=== PATIENT | female | born 1965 | race American Indian/Alaskan Native ===

== ENCOUNTER 2018-05-20 15:11 | Inpatient (IN) | payer MEDICAID ==
[2018-05-20] MEDS ORDERED: hydrALAZINE 20 MG/ML SDV IVPUSH ONE (17:49)
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
[2018-05-20] MEDS ORDERED: Ondansetron 4 MG Tab.DIS PO PRN (18:05)
[2018-05-20] MEDS ORDERED: Albuterol/Ipratropium 3.0-0.5 MG/3 ML Neb Soln NEB PRN (18:05)
[2018-05-20] MEDS ORDERED: Bisacodyl 5 MG Tab PO PRN (18:05)
[2018-05-20] MEDS ORDERED: Albuterol 0.083% 2.5 MG/3 ML Neb Soln NEB PRN (18:05)
[2018-05-20] MEDS ORDERED: Ondansetron 4 MG/2 ML SDV IV PRN (18:05)
[2018-05-20] MEDS ORDERED: Docusate Sodium 100 MG Cap PO PRN (18:05)
[2018-05-20] MEDS ORDERED: Polyethylene Glycol 3350 Powder 17 GM Packet PO PRN (18:05)
[2018-05-20] MEDS ORDERED: Magnesium Hydroxide 400 MG/5 ML Susp 30 ML Cup PO PRN (18:05)
[2018-05-20] MEDS ORDERED: Sodium Chloride 0.9% 10 ML Syringe FLUSH PRN ×2 (18:05→18:30)
[2018-05-20] MEDS: Pantoprazole 40 MG Vial IVPUSH SCH (18:10)
[2018-05-20] MEDS ORDERED: Ketorolac 30 MG/ML SDV IV PRN (18:21)
[2018-05-20] MEDS ORDERED: Metoprolol Tartrate 25 MG Tab PO PRN (18:30)
[2018-05-20] MEDS ORDERED: LORazepam 2 MG/ML SDV IV SCH (18:30)
[2018-05-20] MEDS ORDERED: cloNIDine 0.1 MG Tab PO PRN (18:30)
[2018-05-20] MEDS ORDERED: Multivitamins,Therapeutic Tab PO ONE (18:30)
[2018-05-20] MEDS ORDERED: LORazepam 1 MG Tab PO SCH (18:30)
[2018-05-20] MEDS ORDERED: Haloperidol Lactate 5 MG/ML SDV IM PRN (18:30)
[2018-05-20] MEDS: Nicotine 21 MG/24 Hr Patch TRDERM SCH (18:34)
[2018-05-20] MEDS ORDERED: hydrALAZINE 20 MG/ML SDV IVPUSH PRN (18:41)
[2018-05-20] MEDS ORDERED: LORazepam 2 MG/ML SDV IVPUSH PRN (18:44)
[2018-05-20] MEDS: Folic Acid 1 MG Tab PO SCH (19:27)
[2018-05-20] MEDS: Thiamine 100 MG Tab PO SCH (19:27)
[2018-05-20] MEDS: amLODIPine 10 MG Tab PO SCH (20:04)
[2018-05-20] MEDS: Prazosin 1 MG Cap PO SCH (20:05)
[2018-05-20] MEDS: Topiramate 25 MG Tab PO SCH (20:05)
[2018-05-20] MEDS: Furosemide 20 MG Tab PO SCH (20:10)
[2018-05-20] MEDS ORDERED: QUEtiapine 25 MG Tab PO SCH (21:00)
[2018-05-20] MEDS: Remove Patch*NICOTINE TRDERM SCH (22:30)
[2018-05-21] MEDS: Levothyroxine 125 MCG Tab PO SCH (05:39)
[2018-05-21] MEDS ORDERED: Levothyroxine 75 MCG Tab PO SCH (06:00)
[2018-05-21] MEDS: Calcium Carbonate 600 MG Tab PO SCH ×2 (06:21→16:48)
[2018-05-21] MEDS ORDERED: Pneumococcal Polyvalent-23 Vaccine 0.5 ML SDV IM ONE (07:15)
[2018-05-21] MEDS: Furosemide 20 MG Tab PO SCH (08:36)
[2018-05-21] MEDS: Loratadine 10 MG Tab PO SCH (08:37)
[2018-05-21] MEDS: Thiamine 100 MG Tab PO SCH (08:37)
[2018-05-21] MEDS: Topiramate 25 MG Tab PO SCH ×2 (08:37→20:14)
[2018-05-21] MEDS: amLODIPine 10 MG Tab PO SCH (08:38)
[2018-05-21] MEDS: Nicotine 21 MG/24 Hr Patch TRDERM SCH (08:42)
[2018-05-21] MEDS: Pantoprazole 40 MG Vial IVPUSH SCH (08:45)
[2018-05-21] MEDS: Folic Acid 1 MG Tab PO SCH (08:47)
[2018-05-21] MEDS: Ibuprofen 400 MG Tab PO PRN ×2 (09:44→16:48)
[2018-05-21] MEDS: Pantoprazole 40 MG Tab.CR PO SCH (09:44)
[2018-05-21] MEDS: hydrOXYzine HCl 25 MG Tab PO PRN ×3 (10:30→21:16)
[2018-05-21] MEDS: Remove Patch*NICOTINE TRDERM SCH (10:32)
--- NOTE | 2018-05-21 11:02 | CR ---
Left knee: AP and lateral views of the left knee were obtained. No joint effusion is seen. Medial and lateral joint compartments are maintained in height. No fracture or other abnormality is seen. Impression: 1. No abnormality is seen on two-view left knee exam. Diagnostic code #1
--- NOTE | 2018-05-21 16:41 | PCM.PN ---
- General Info Date of Service: 05/21/18 Admission Dx/Problem (Free Text): Admission Diagnosis/Problem Admission Diagnosis/Problem Alcohol abuse Subjective Update: In to see Анна. She is lying comfortably in bed in the dark resting. Overall she states she is feeling much better today. She does complain of some anxiety and some mild bouts of nausea, but other than that she denies any other symptoms. She did talk with Dr. Belle today and states it "went very well". She is on board with his medication recommendations, increasing Seroquel from 25mg-- > 75mg PO bedtime and starting Effexor 150 Q daily. I also discussed that she needs to continue taking her at-home medications once she is discharged and explained that her uncontrolled hypothyroid will cause her to have more depression. She states she agrees and is willing to start taking her medications as prescribed from now on. Still awaiting Substance Abuse consult which will be with Tripp Roger later today. No other concerns from nursing. Will D/ C pending recommendations from Dr. Belle and Tripp Roger. Functional Status: Reports: Pain Controlled, Tolerating Diet, Ambulating, Urinating - Review of Systems General: Reports: No Symptoms. Denies: Fever, Chills HEENT: Reports: No Symptoms Pulmonary: Reports: Shortness of Breath (with anxiety). Denies: Cough Cardiovascular: Reports: No Symptoms. Denies: Chest Pain, Palpitations, Edema Gastrointestinal: Reports: Nausea (intermittent). Denies: Abdominal Pain, Diarrhea, Vomiting Genitourinary: Reports: No Symptoms Musculoskeletal: Reports: No Symptoms Skin: Reports: No Symptoms Neurological: Reports: No Symptoms. Denies: Numbness, Tingling, Weakness Psychiatric: Reports: Depression, Anxiety - Patient Data Vitals - Most Recent: Last Vital Signs Temp 98.0 F 05/21/18 11:37 Pulse 93 05/21/18 11:37 Resp 16 05/21/18 11:37 BP 131/56 L 05/21/18 11:37 Pulse Ox 100 05/21/18 11:37 Weight - Most Recent: 189 lb 3.2 oz I&O - Last 24 Hours: Intake & Output 05/21/18 05/21/18 05/21/18 06:59 14:59 22:59 Intake Total 1200 1500 240 Balance 1200 1500 240 Lab Results Last 24 Hours: Laboratory Results - last 24 hr 05/20/18 05/20/18 05/20/18 Range/Units 18:00 18:00 18:00 WBC 9.33 (3.98-10.04) K/mm3 RBC 4.33 (3.98-5.22) M/mm3 Hgb 11.3 (11.2-15.7) gm/L Hct 34.1 (34.1-44.9) % MCV 78.8 L (79.4-94.8) fl MCH 26.1 (25.6-32.2) pg MCHC 33.1 (32.2-35.5) g/dl RDW Std Deviation 63.8 H (36.4-46.3) fL Plt Count 364 (182-369) K/mm3 MPV 9.7 (9.4-12.3) fl Neut % (Auto) (34.0-71.1) % Lymph % (Auto) (19.3-51.7) % [place] % (Auto) (4.7-12.5) % Eos % (Auto) (0.7-5.8) Baso % (Auto) (0.1-1.2) % Neut # (Auto) (1.56-6.13) K/mm3 Lymph # (Auto) (1.18-3.74) K/mm3 [place] # (Auto) (0.24-0.36) K/mm3 Eos # (Auto) (0.04-0.36) K/mm3 Baso # (Auto) (0.01-0.08) K/mm3 Neutrophils % (Manual) 44 (40-60) % Band Neutrophils % 0 (0-10) % Lymphocytes % (Manual) 36 (20-40) % Atypical Lymphs % 0 % Monocytes % (Manual) 9 (2-10) % Eosinophils % (Manual) 9 H (0.7-5.8) % Basophils % (Manual) 2 H (0.1-1.2) Platelet Estimate Adequate Plt Morphology Comment Normal Poikilocytosis 2+ moderate Anisocytosis 2+ moderate Microcytosis 1+ slight Macrocytosis 1+ slight Target Cells 1+ slight Tear Drop Cells 1+ slight Ovalocytes 1+ slight RBC Morph Comment Abnormal Sodium 138 (136-145) mEq/L Potassium 4.6 (3.5-5.1) mEq/L Chloride 105 (98-107) mEq/L Carbon Dioxide 26 (21-32) mEq/L Anion Gap 11.6 (5-15) BUN 11 (7-18) mg/dL Creatinine 1.2 H (0.55-1.02) mg/dL Est Cr Clr Drug Dosing 44.36 mL/min Estimated GFR (MDRD) 48 (>60) mL/min BUN/Creatinine Ratio 9.2 L (14-18) Glucose 132 H (74-106) mg/dL Hemoglobin A1c (4.50-6.20) % Calcium 7.6 L (8.5-10.1) mg/dL Magnesium 2.0 (1.8-2.4) mg/dl Total Bilirubin 0.4 (0.2-1.0) mg/dL AST TNP ALT TNP Alkaline Phosphatase 135 H (46-116) U/L Total Protein 6.7 (6.4-8.2) g/dl Albumin 3.0 L (3.4-5.0) g/dl Globulin 3.7 gm/dL Albumin/Globulin Ratio 0.8 L (1-2) Free T4 (0.76-1.46) ng/dL TSH 3rd Generation 168.566 H (0.358-3.74) uIU/mL Urine Opiates Screen Negative (NEGATIVE) Ur Buprenorphine Scrn Negative (NEGATIVE) Ur Oxycodone Screen Negative (NEGATIVE) Urine Methadone Screen Negative (NEGATIVE) Ur Propoxyphene Screen Negative (NEGATIVE) Ur Barbiturates Screen Negative (NEGATIVE) Ur Tricyclics Screen Negative (NEGATIVE) Ur Phencyclidine Scrn Negative (NEGATIVE) Ur Amphetamine Screen Negative (NEGATIVE) U Methamphetamines Scrn Negative (NEGATIVE) U Benzodiazepines Scrn Negative (NEGATIVE) U Cocaine Metab Screen Negative (NEGATIVE) U Marijuana (THC) Screen Negative (NEGATIVE) Ethyl Alcohol 0.07 (0.00) gm% 05/20/18 05/21/18 05/21/18 Range/Units 18:00 06:45 06:45 WBC 12.91 H (3.98-10.04) K/mm3 RBC 4.05 (3.98-5.22) M/mm3 Hgb 10.2 L (11.2-15.7) gm/L Hct 31.5 L (34.1-44.9) % MCV 77.8 L (79.4-94.8) fl MCH 25.2 L (25.6-32.2) pg MCHC 32.4 (32.2-35.5) g/dl RDW Std Deviation 64.0 H (36.4-46.3) fL Plt Count 337 (182-369) K/mm3 MPV 10.3 (9.4-12.3) fl Neut % (Auto) 70.0 (34.0-71.1) % Lymph % (Auto) 20.4 (19.3-51.7) % [place]oup % (Auto) 7.3 (4.7-12.5) % Eos % (Auto) 1.2 (0.7-5.8) Baso % (Auto) 0.7 (0.1-1.2) % Neut # (Auto) 9.05 H (1.56-6.13) K/mm3 Lymph # (Auto) 2.63 (1.18-3.74) K/mm3 Troup # (Auto) 0.94 H (0.24-0.36) K/mm3 Eos # (Auto) 0.15 (0.04-0.36) K/mm3 Baso # (Auto) 0.09 H (0.01-0.08) K/mm3 Neutrophils % (Manual) (40-60) % Band Neutrophils % (0-10) % Lymphocytes % (Manual) (20-40) % Atypical Lymphs % % Monocytes % (Manual) (2-10) % Eosinophils % (Manual) (0.7-5.8) % Basophils % (Manual) (0.1-1.2) Platelet Estimate Plt Morphology Comment Poikilocytosis Anisocytosis Microcytosis Macrocytosis Target Cells Tear Drop Cells Ovalocytes RBC Morph Comment Sodium 136 (136-145) mEq/L Potassium 3.9 (3.5-5.1) mEq/L Chloride 104 (98-107) mEq/L Carbon Dioxide 23 (21-32) mEq/L Anion Gap 12.9 (5-15) BUN 13 (7-18) mg/dL Creatinine 1.2 H (0.55-1.02) mg/dL Est Cr Clr Drug Dosing 44.36 mL/min Estimated GFR (MDRD) 48 (>60) mL/min BUN/Creatinine Ratio 10.8 L (14-18) Glucose 107 H (74-106) mg/dL Hemoglobin A1c (4.50-6.20) % Calcium 7.9 L (8.5-10.1) mg/dL Magnesium 1.8 (1.8-2.4) mg/dl Total Bilirubin 0.4 (0.2-1.0) mg/dL AST 28 ALT 32 Alkaline Phosphatase 127 H (46-116) U/L Total Protein 6.3 L (6.4-8.2) g/dl Albumin 2.8 L (3.4-5.0) g/dl Globulin 3.5 gm/dL Albumin/Globulin Ratio 0.8 L (1-2) Free T4 0.07 L (0.76-1.46) ng/dL TSH 3rd Generation (0.358-3.74) uIU/mL Urine Opiates Screen (NEGATIVE) Ur Buprenorphine Scrn (NEGATIVE) Ur Oxycodone Screen (NEGATIVE) Urine Methadone Screen (NEGATIVE) Ur Propoxyphene Screen (NEGATIVE) Ur Barbiturates Screen (NEGATIVE) Ur Tricyclics Screen (NEGATIVE) Ur Phencyclidine Scrn (NEGATIVE) Ur Amphetamine Screen (NEGATIVE) U Methamphetamines Scrn (NEGATIVE) U Benzodiazepines Scrn (NEGATIVE) U Cocaine Metab Screen (NEGATIVE) U Marijuana (THC) Screen (NEGATIVE) Ethyl Alcohol (0.00) gm% 05/21/18 Range/Units 06:45 WBC (3.98-10.04) K/mm3 RBC (3.98-5.22) M/mm3 Hgb (11.2-15.7) gm/L Hct (34.1-44.9) % MCV (79.4-94.8) fl MCH (25.6-32.2) pg MCHC (32.2-35.5) g/dl RDW Std Deviation (36.4-46.3) fL Plt Count (182-369) K/mm3 MPV (9.4-12.3) fl Neut % (Auto) (34.0-71.1) % Lymph % (Auto) (19.3-51.7) % [place] % (Auto) (4.7-12.5) % Eos % (Auto) (0.7-5.8) Baso % (Auto) (0.1-1.2) % Neut # (Auto) (1.56-6.13) K/mm3 Lymph # (Auto) (1.18-3.74) K/mm3 [place] # (Auto) (0.24-0.36) K/mm3 Eos # (Auto) (0.04-0.36) K/mm3 Baso # (Auto) (0.01-0.08) K/mm3 Neutrophils % (Manual) (40-60) % Band Neutrophils % (0-10) % Lymphocytes % (Manual) (20-40) % Atypical Lymphs % % Monocytes % (Manual) (2-10) % Eosinophils % (Manual) (0.7-5.8) % Basophils % (Manual) (0.1-1.2) Platelet Estimate Plt Morphology Comment Poikilocytosis Anisocytosis Microcytosis Macrocytosis Target Cells Tear Drop Cells Ovalocytes RBC Morph Comment Sodium (136-145) mEq/L Potassium (3.5-5.1) mEq/L Chloride (98-107) mEq/L Carbon Dioxide (21-32) mEq/L Anion Gap (5-15) BUN (7-18) mg/dL Creatinine (0.55-1.02) mg/dL Est Cr Clr Drug Dosing mL/min Estimated GFR (MDRD) (>60) mL/min BUN/Creatinine Ratio (14-18) Glucose (74-106) mg/dL Hemoglobin A1c 6.10 (4.50-6.20) % Calcium (8.5-10.1) mg/dL Magnesium (1.8-2.4) mg/dl Total Bilirubin (0.2-1.0) mg/dL AST ALT Alkaline Phosphatase (46-116) U/L Total Protein (6.4-8.2) g/dl Albumin (3.4-5.0) g/dl Globulin gm/dL Albumin/Globulin Ratio (1-2) Free T4 (0.76-1.46) ng/dL TSH 3rd Generation (0.358-3.74) uIU/mL Urine Opiates Screen (NEGATIVE) Ur Buprenorphine Scrn (NEGATIVE) Ur Oxycodone Screen (NEGATIVE) Urine Methadone Screen (NEGATIVE) Ur Propoxyphene Screen (NEGATIVE) Ur Barbiturates Screen (NEGATIVE) Ur Tricyclics Screen (NEGATIVE) Ur Phencyclidine Scrn (NEGATIVE) Ur Amphetamine Screen (NEGATIVE) U Methamphetamines Scrn (NEGATIVE) U Benzodiazepines Scrn (NEGATIVE) U Cocaine Metab Screen (NEGATIVE) U Marijuana (THC) Screen (NEGATIVE) Ethyl Alcohol (0.00) gm% Med Orders - Current: Current Medications Albuterol (Proventil Neb Soln) 2.5 mg NEB Q2H PRN PRN Reason: Shortness Of Breath/wheezing Albuterol/Ipratropium (Duoneb 3.0-0.5 Mg/3 Ml) 3 ml NEB Q4H PRN PRN Reason: Shortness Of Breath/wheezing Amlodipine Besylate (Norvasc) 10 mg PO DAILY [facility] Last Admin: 05/21/18 08:38 Dose: 10 mg Bisacodyl (Dulcolax) 5 mg PO DAILY PRN PRN Reason: Constipation Calcium Carbonate/Glycine (Calcium Carbonate) 1,200 mg PO BIDMEALS [facility] Stop: 05/22/18 17:01 Last Admin: 05/21/18 06:21 Dose: 1,200 mg Clonidine HCl (Catapres) 0.1 mg PO Q4H PRN PRN Reason: Agitation Docusate Sodium (Colace) 100 mg PO BID PRN PRN Reason: Constipation Folic Acid (Folic Acid) 1 mg PO DAILY [facility] Stop: 05/22/18 09:01 Last Admin: 05/21/18 08:47 Dose: 1 mg Furosemide (Lasix) 20 mg PO DAILY [facility] Last Admin: 05/21/18 08:36 Dose: 20 mg Haloperidol Lactate (Haldol) 2 mg IM Q4H PRN PRN Reason: Agitation Hydralazine HCl (Apresoline) 20 mg IVPUSH Q6H PRN PRN Reason: Hypertension Hydroxyzine HCl (Atarax) 25 mg PO Q6H PRN PRN Reason: Anxiety Last Admin: 05/21/18 10:30 Dose: 25 mg Ibuprofen (Motrin) 400 mg PO Q6H PRN PRN Reason: Pain (mild 1-3) Last Admin: 05/21/18 09:44 Dose: 400 mg Ketorolac Tromethamine (Toradol) 30 mg IV Q6H PRN PRN Reason: Pain (moderate 4-6) Levothyroxine Sodium (Levothyroxine) 125 mcg PO ACBREAKFAST [facility] Last Admin: 05/21/18 05:39 Dose: 125 mcg Loratadine (Claritin) 10 mg PO DAILY [facility] Last Admin: 05/21/18 08:37 Dose: 10 mg Lorazepam (Ativan) 0 mg IV ASDIRECTED [facility]; Protocol Lorazepam (Ativan) 0 mg PO ASDIRECTED [facility]; Protocol Last Admin: 05/20/18 21:03 Dose: 1 mg Lorazepam (Ativan) 2 mg IVPUSH Q4H PRN PRN Reason: Seizures Magnesium Hydroxide (Milk Of Magnesia) 30 ml PO Q12H PRN PRN Reason: Constipation Metoprolol Tartrate (Lopressor) 25 mg PO Q6H PRN PRN Reason: See Label Comment Miscellaneous Information (Remove Patch) 1 ea TRDERM DAILY [facility] Last Admin: 05/21/18 10:32 Dose: Not Given Nicotine (Habitrol) 21 mg TRDERM DAILY [facility] Last Admin: 05/21/18 08:42 Dose: 21 mg Ondansetron HCl (Zofran Odt) 4 mg PO Q6H PRN PRN Reason: nausea, able to take PO Ondansetron HCl (Zofran) 4 mg IV Q4H PRN PRN Reason: Nausea/Vomiting Pantoprazole Sodium (Protonix) 40 mg PO DAILY [facility] Last Admin: 05/21/18 09:44 Dose: 40 mg Polyethylene Glycol (Miralax) 17 gm PO DAILY PRN PRN Reason: Constipation Prazosin HCl (Minpress) 1 mg PO BEDTIME [facility] Last Admin: 05/20/18 20:05 Dose: 1 mg Quetiapine Fumarate (Seroquel) 75 mg PO BEDTIME [facility] Senna/Docusate Sodium (Senna Plus) 1 tab PO BID PRN PRN Reason: Constipation Sodium Chloride (Saline Flush) 10 ml FLUSH ASDIRECTED PRN PRN Reason: Keep Vein Open Sodium Chloride (Saline Flush) 10 ml FLUSH ASDIRECTED PRN PRN Reason: Keep Vein Open Thiamine HCl (Vitamin B-1) 100 mg PO DAILY [facility] Last Admin: 05/21/18 08:37 Dose: 100 mg Topiramate (Topamax) 25 mg PO BID [facility] Last Admin: 05/21/18 08:37 Dose: 25 mg Venlafaxine HCl (Effexor Xr) 150 mg PO DAILY [facility] Discontinued Medications Hydralazine HCl (Apresoline) 20 mg IVPUSH ONETIME ONE Stop: 05/20/18 17:50 Last Admin: 05/20/18 17:58 Dose: 20 mg Levothyroxine Sodium (Levothyroxine) 75 mcg PO ACBREAKFAST [facility] Multivitamins (Thera) 1 each PO ONETIME ONE Stop: 05/20/18 18:31 Last Admin: 05/20/18 19:27 Dose: 1 each Pantoprazole Sodium (Protonix Iv) 40 mg IVPUSH DAILY [facility] Last Admin: 05/21/18 08:45 Dose: Not Given Pneumococcal Polyvalent Vaccine (Pneumovax 23) 0.5 ml IM .ONCE ONE Stop: 05/21/18 07:16 Last Admin: 05/21/18 08:39 Dose: 0.5 ml Quetiapine Fumarate (Seroquel) 50 mg PO BEDTIME [facility] Last Admin: 05/20/18 20:05 Dose: 50 mg - Exam Quality Assessment: DVT Prophylaxis. No: Supplemental Oxygen General: Alert, Oriented, Cooperative HEENT: Pupils Equal, Pupils Reactive, EOMI, Mucous Membr. Moist/Haslet Neck: Supple Lungs: Clear to Auscultation, Normal Respiratory Effort Cardiovascular: Regular Rhythm, Tachycardia GI/Abdominal Exam: Normal Bowel Sounds, Soft, Non-Tender, No Organomegaly, No Distention, No Abnormal Bruit, No Mass, Pelvis Stable (Female) Exam: Deferred Back Exam: Normal Inspection, Full Range of Motion Extremities: Normal Inspection, Normal Range of Motion, Non-Tender, No Pedal Edema, Normal Capillary Refill Peripheral Pulses: 3+: Posterior Tibial (L), Posterior Tibial (R), Dorsalis Pedis (L), Dorsalis Pedis (R) Skin: Warm, Dry, Intact Neurological: No New Focal Deficit Psy/Mental Status: Alert, Normal Affect, Anxious, Depressed - Problem List & Annotations (1) ETOH abuse SNOMED Code(s): 67984778 Code(s): F10.10 - ALCOHOL ABUSE, UNCOMPLICATED Status: Acute Priority: High Current Visit: Yes (2) Tobacco dependence SNOMED Code(s): 45364902 Code(s): F17.200 - NICOTINE DEPENDENCE, UNSPECIFIED, UNCOMPLICATED Status: Acute Priority: High Current Visit: Yes - Problem List Review Problem List Initiated/Reviewed/Updated: Yes - My Orders Last 24 Hours: My Active Orders 05/20/18 16:22 Admission Status [Patient Status] [ADT] Routine 05/20/18 18:05 Cardiac Monitoring [RC] CONTINUOUS Height and Weight [RC] 02 January Shower [RC] ASDIRECTED Oxygen Therapy [RC] PRN Pulse Oximetry [RC] CONTINUOUS Up With Assistance [RC] ASDIRECTED VTE/DVT Education [RC] Consult to Case Management/Therapeutic Riding Instructor [CONS] Routine Consult to Physician [CONS] Routine Consult to Spiritual Care [CONS] Routine Albuterol [Proventil Neb Soln] 2.5 mg NEB Q2H PRN Albuterol/Ipratropium [DuoNeb 3.0-0.5 MG/3 ML] 3 ml NEB Q4H PRN Bisacodyl [Dulcolax] 5 mg PO DAILY PRN Docusate Sodium [Colace] 100 mg PO BID PRN Docusate Sodium/Sennosides [Senna Plus] 1 tab PO BID PRN Ibuprofen [Motrin] 400 mg PO Q6H PRN Magnesium Hydroxide [Milk of Magnesia] 30 ml PO Q12H PRN Ondansetron [Zofran ODT] 4 mg PO Q6H PRN Ondansetron [Zofran] 4 mg IV Q4H PRN Polyethylene Glycol 3350 [MiraLAX] 17 gm PO DAILY PRN Sodium Chloride 0.9% [Saline Flush] 10 ml FLUSH ASDIRECTED PRN Peripheral IV Insertion Adult [OM.PC] Routine Resuscitation Status Routine 05/20/18 18:06 Intake and Output [RC] 04,16 Notify Provider Vital Signs [RC] ASDIRECTED 05/20/18 18:11 Sequential Compression Device [OM.PC] Per Unit Routine 05/20/18 18:15 Peripheral IV Care [RC] Q2HR RT Aerosol Therapy [RC] ASDIRECTED Nicotine [Habitrol] 21 mg TRDERM DAILY 05/20/18 18:18 Notify Provider Consults [RC] ASDIRECTED 05/20/18 18:21 Ketorolac [Toradol] 30 mg IV Q6H PRN 05/20/18 18:23 Seizure Precautions [OM.PC] Routine 05/20/18 18:30 Haloperidol Lactate [Haldol] 2 mg IM Q4H PRN LORazepam [Ativan] See Protocol IV ASDIRECTED LORazepam [Ativan] See Protocol PO ASDIRECTED Metoprolol Tartrate [Lopressor] 25 mg PO Q6H PRN Sodium Chloride 0.9% [Saline Flush] 10 ml FLUSH ASDIRECTED PRN cloNIDine [Catapres] 0.1 mg PO Q4H PRN Saline Lock Insert [OM.PC] Routine 05/20/18 18:31 CIWAA Assessment [RC] Q4HR Notify Provider [RC] PRN 05/20/18 18:41 hydrALAZINE [Apresoline] 20 mg IVPUSH Q6H PRN 05/20/18 18:44 LORazepam [Ativan] 2 mg IVPUSH Q4H PRN 05/20/18 18:45 Folic Acid 1 mg PO DAILY Thiamine [Vitamin B-1] 100 mg PO DAILY 05/20/18 18:48 Consult for Substance Abuse [CONS] Routine 05/20/18 19:30 Furosemide [Lasix] 20 mg PO DAILY 05/20/18 19:45 amLODIPine [Norvasc] 10 mg PO DAILY 05/20/18 21:00 Prazosin [Minpress] 1 mg PO BEDTIME Topiramate [Topamax] 25 mg PO BID 05/20/18 Dinner Regular Diet [DIET] 05/21/18 09:00 Loratadine [Claritin] 10 mg PO DAILY 05/22/18 05:11 CBC WITH AUTO DIFF [HEME] AM COMPREHENSIVE METABOLIC PN,CMP [CHEM] AM MAGNESIUM [CHEM] AM 05/23/18 05:11 CBC WITH AUTO DIFF [HEME] AM COMPREHENSIVE METABOLIC PN,CMP [CHEM] AM MAGNESIUM [CHEM] AM 05/24/18 05:11 CBC WITH AUTO DIFF [HEME] AM COMPREHENSIVE METABOLIC PN,CMP [CHEM] AM MAGNESIUM [CHEM] AM 05/25/18 05:11 CBC WITH AUTO DIFF [HEME] AM COMPREHENSIVE METABOLIC PN,CMP [CHEM] AM MAGNESIUM [CHEM] AM - Plan Plan:: Assessment/Plan: Acute: ETOH Abuse/Withdrawal, Improving * Acute on Chronic * Drank "half a box of wine" today * KEYANNA is 0.07 * CIWA protocol: CIWA score is 6 * Ativan/Seroquel/Clonidine/Topamax * Hydralazine and IVP BB for HR/BP control * Ativan for Abortive Seizure and Withdrawal Symptoms * She wants to get better Hx/o Poly-Substance Abuse * UDS: negative * Counseled on Substance Abuse * SA/Psych consult Tobacco Dependence * Smokes 1ppd x 30yrs * Nicotine patch daily * Counseled on Smoking Cessation Medical Noncompliance * States she hasn't taken any of her prescribed medications in at least 5 weeks * Restart home meds * Had discussion about the importance of taking her medications and the repercussions of not taking them; she states she understands and is willing to start them again Uncontrolled Hypothyroidism * 2/2 medical noncompliance * TSH 168.566 * T4 0.07 * Restart Levothyroxine Chronic: PTSD Bipolar Depression/Anxiety Gastric Bypass 2008 Hypothyroid Plan: Admit to ICU MVI, Folic Acid and Thiamine CIWA protocol Ativan for Abortive Seizure and Withdrawal Symptoms PRN meds for Withdrawal Symptoms Seizure Precautions DVT and GI: SCDs, Protonix SW/CM D/C planning SA/Psych consult Full Code; No PCP just moved from [place], need to establish
[2018-05-21] MEDS: Prazosin 1 MG Cap PO SCH (20:14)
[2018-05-21] MEDS: QUEtiapine 25 MG Tab PO SCH (20:14)
[2018-05-22] MEDS: Levothyroxine 125 MCG Tab PO SCH (05:23)
[2018-05-22] MEDS: Furosemide 20 MG Tab PO SCH (08:04)
[2018-05-22] MEDS: Loratadine 10 MG Tab PO SCH (08:04)
[2018-05-22] MEDS: Thiamine 100 MG Tab PO SCH (08:05)
[2018-05-22] MEDS: Topiramate 25 MG Tab PO SCH ×2 (08:05→20:36)
[2018-05-22] MEDS: Folic Acid 1 MG Tab PO SCH (08:05)
[2018-05-22] MEDS: amLODIPine 10 MG Tab PO SCH (08:05)
[2018-05-22] MEDS: Calcium Carbonate 600 MG Tab PO SCH ×2 (08:05→17:51)
[2018-05-22] MEDS: Venlafaxine 75 MG Cap.ER PO SCH (08:05)
[2018-05-22] MEDS: Pantoprazole 40 MG Tab.CR PO SCH (08:06)
[2018-05-22] MEDS: Nicotine 21 MG/24 Hr Patch TRDERM SCH (08:06)
[2018-05-22] MEDS: Remove Patch*NICOTINE TRDERM SCH ×2 (08:09→21:38)
[2018-05-22] MEDS: hydrOXYzine HCl 25 MG Tab PO PRN ×2 (08:13→14:54)
[2018-05-22] MEDS: Ibuprofen 400 MG Tab PO PRN (12:36)
--- NOTE | 2018-05-22 16:09 | PCM.PN ---
- General Info Date of Service: 05/22/18 Admission Dx/Problem (Free Text): Admission Diagnosis/Problem Admission Diagnosis/Problem Alcohol abuse Subjective Update: In to see Анна. She is laying in bed in a dark room and is on her phone. She still seems to be depressed. Overall she has no new symptoms, just anxiety. I updated her that she is no longer here for detox, but for her elevated thyroid labs. She states she understands. I also discussed her substance abuse issues with her and asked her what her plan is once she is discharged. She states she is feeling better and "knows the resources I need to get better". She states she is willing to do AA, therapy, and follow up with a PCP here in town and stick with her medication regimen, but she is unsure if she will want to do outpt substance abuse treatment. She talked with Tripp Roger SA counselor earlier but would not give consent to look into her records to decide if she qualifies for inpatient treatment. She states she may not be comfortable doing inpt treatment anyway. No other concerns from nursing. Will likely be D/C'd once her thyroid labs normalize. Functional Status: Reports: Pain Controlled, Tolerating Diet, Ambulating, Urinating - Review of Systems General: Reports: No Symptoms HEENT: Reports: No Symptoms Pulmonary: Reports: No Symptoms Cardiovascular: Reports: No Symptoms Gastrointestinal: Reports: No Symptoms Genitourinary: Reports: No Symptoms Musculoskeletal: Reports: No Symptoms Skin: Reports: No Symptoms Neurological: Reports: No Symptoms Psychiatric: Reports: Depression, Anxiety. Denies: Suicidal Ideation, Homicidal Ideation - Patient Data Vitals - Most Recent: Last Vital Signs Temp 98.1 F 05/22/18 12:00 Pulse 83 05/22/18 12:00 Resp 20 05/22/18 12:00 BP 137/77 05/22/18 12:00 Pulse Ox 97 05/22/18 12:00 Weight - Most Recent: 189 lb 9.6 oz I&O - Last 24 Hours: Intake & Output 05/22/18 05/22/18 05/22/18 06:59 14:59 22:59 Intake Total 1000 20 Balance 1000 20 Lab Results Last 24 Hours: Laboratory Results - last 24 hr 05/22/18 05/22/18 Range/Units 05:25 05:25 WBC 8.16 (3.98-10.04) K/mm3 RBC 4.27 (3.98-5.22) M/mm3 Hgb 10.7 L (11.2-15.7) gm/L Hct 33.6 L (34.1-44.9) % MCV 78.7 L (79.4-94.8) fl MCH 25.1 L (25.6-32.2) pg MCHC 31.8 L (32.2-35.5) g/dl RDW Std Deviation 64.9 H (36.4-46.3) fL Plt Count 289 (182-369) K/mm3 MPV 10.8 (9.4-12.3) fl Neut % (Auto) 49.9 (34.0-71.1) % Lymph % (Auto) 39.6 (19.3-51.7) % [place] % (Auto) 6.3 (4.7-12.5) % Eos % (Auto) 3.3 (0.7-5.8) Baso % (Auto) 0.7 (0.1-1.2) % Neut # (Auto) 4.07 (1.56-6.13) K/mm3 Lymph # (Auto) 3.23 (1.18-3.74) K/mm3 [place]ingo # (Auto) 0.51 H (0.24-0.36) K/mm3 Eos # (Auto) 0.27 (0.04-0.36) K/mm3 Baso # (Auto) 0.06 (0.01-0.08) K/mm3 Sodium 139 (136-145) mEq/L Potassium 3.6 (3.5-5.1) mEq/L Chloride 103 (98-107) mEq/L Carbon Dioxide 27 (21-32) mEq/L Anion Gap 12.6 (5-15) BUN 16 (7-18) mg/dL Creatinine 1.3 H (0.55-1.02) mg/dL Est Cr Clr Drug Dosing 40.95 mL/min Estimated GFR (MDRD) 43 (>60) mL/min BUN/Creatinine Ratio 12.3 L (14-18) Glucose 98 (74-106) mg/dL Calcium 8.3 L (8.5-10.1) mg/dL Magnesium 2.1 (1.8-2.4) mg/dl Total Bilirubin 0.7 (0.2-1.0) mg/dL AST 40 H (15-37) U/L ALT 49 (14-59) U/L Alkaline Phosphatase 165 H (46-116) U/L Total Protein 6.8 (6.4-8.2) g/dl Albumin 3.1 L (3.4-5.0) g/dl Globulin 3.7 gm/dL Albumin/Globulin Ratio 0.8 L (1-2) TSH 3rd Generation 173.907 H (0.358-3.74) uIU/mL Med Orders - Current: Current Medications Albuterol (Proventil Neb Soln) 2.5 mg NEB Q2H PRN PRN Reason: Shortness Of Breath/wheezing Albuterol/Ipratropium (Duoneb 3.0-0.5 Mg/3 Ml) 3 ml NEB Q4H PRN PRN Reason: Shortness Of Breath/wheezing Amlodipine Besylate (Norvasc) 10 mg PO DAILY COUNT INCLUDES THE [facility] Last Admin: 05/22/18 08:05 Dose: 10 mg Bisacodyl (Dulcolax) 5 mg PO DAILY PRN PRN Reason: Constipation Calcium Carbonate/Glycine (Calcium Carbonate) 1,200 mg PO BIDMEALS COUNT INCLUDES THE [facility] Stop: 05/22/18 17:01 Last Admin: 05/22/18 08:05 Dose: 1,200 mg Clonidine HCl (Catapres) 0.1 mg PO Q4H PRN PRN Reason: Agitation Docusate Sodium (Colace) 100 mg PO BID PRN PRN Reason: Constipation Furosemide (Lasix) 20 mg PO DAILY COUNT INCLUDES THE [facility] Last Admin: 05/22/18 08:04 Dose: 20 mg Haloperidol Lactate (Haldol) 2 mg IM Q4H PRN PRN Reason: Agitation Hydralazine HCl (Apresoline) 20 mg IVPUSH Q6H PRN PRN Reason: Hypertension Hydroxyzine HCl (Atarax) 25 mg PO Q6H PRN PRN Reason: Anxiety Last Admin: 05/22/18 14:54 Dose: 25 mg Ibuprofen (Motrin) 400 mg PO Q6H PRN PRN Reason: Pain (mild 1-3) Last Admin: 05/22/18 12:36 Dose: 400 mg Ketorolac Tromethamine (Toradol) 30 mg IV Q6H PRN PRN Reason: Pain (moderate 4-6) Levothyroxine Sodium (Levothyroxine) 125 mcg PO ACBREAKFAST COUNT INCLUDES THE [facility] Last Admin: 05/22/18 05:23 Dose: 125 mcg Loratadine (Claritin) 10 mg PO DAILY COUNT INCLUDES THE [facility] Last Admin: 05/22/18 08:04 Dose: 10 mg Lorazepam (Ativan) 0 mg IV ASDIRECTED FELI; Protocol Lorazepam (Ativan) 0 mg PO ASDIRECTED FELI; Protocol Last Admin: 05/20/18 21:03 Dose: 1 mg Lorazepam (Ativan) 2 mg IVPUSH Q4H PRN PRN Reason: Seizures Magnesium Hydroxide (Milk Of Magnesia) 30 ml PO Q12H PRN PRN Reason: Constipation Metoprolol Tartrate (Lopressor) 25 mg PO Q6H PRN PRN Reason: See Label Comment Miscellaneous Information (Remove Patch) 1 ea TRDERM DAILY COUNT INCLUDES THE [facility] Last Admin: 05/22/18 08:09 Dose: Not Given Nicotine (Habitrol) 21 mg TRDERM DAILY COUNT INCLUDES THE [facility] Last Admin: 05/22/18 08:06 Dose: 21 mg Ondansetron HCl (Zofran Odt) 4 mg PO Q6H PRN PRN Reason: nausea, able to take PO Last Admin: 05/22/18 12:37 Dose: 4 mg Ondansetron HCl (Zofran) 4 mg IV Q4H PRN PRN Reason: Nausea/Vomiting Pantoprazole Sodium (Protonix) 40 mg PO DAILY COUNT INCLUDES THE [facility] Last Admin: 05/22/18 08:06 Dose: 40 mg Polyethylene Glycol (Miralax) 17 gm PO DAILY PRN PRN Reason: Constipation Prazosin HCl (Minpress) 1 mg PO BEDTIME COUNT INCLUDES THE [facility] Last Admin: 05/21/18 20:14 Dose: 1 mg Quetiapine Fumarate (Seroquel) 75 mg PO BEDTIME COUNT INCLUDES THE [facility] Last Admin: 05/21/18 20:14 Dose: 75 mg Senna/Docusate Sodium (Senna Plus) 1 tab PO BID PRN PRN Reason: Constipation Sodium Chloride (Saline Flush) 10 ml FLUSH ASDIRECTED PRN PRN Reason: Keep Vein Open Sodium Chloride (Saline Flush) 10 ml FLUSH ASDIRECTED PRN PRN Reason: Keep Vein Open Thiamine HCl (Vitamin B-1) 100 mg PO DAILY COUNT INCLUDES THE [facility] Last Admin: 05/22/18 08:05 Dose: 100 mg Topiramate (Topamax) 25 mg PO BID COUNT INCLUDES THE [facility] Last Admin: 05/22/18 08:05 Dose: 25 mg Venlafaxine HCl (Effexor Xr) 150 mg PO DAILY COUNT INCLUDES THE [facility] Last Admin: 05/22/18 08:05 Dose: 150 mg Discontinued Medications Folic Acid (Folic Acid) 1 mg PO DAILY COUNT INCLUDES THE [facility] Stop: 05/22/18 09:01 Last Admin: 05/22/18 08:05 Dose: 1 mg Hydralazine HCl (Apresoline) 20 mg IVPUSH ONETIME ONE Stop: 05/20/18 17:50 Last Admin: 05/20/18 17:58 Dose: 20 mg Levothyroxine Sodium (Levothyroxine) 75 mcg PO ACBREAKFAST COUNT INCLUDES THE [facility] Multivitamins (Thera) 1 each PO ONETIME ONE Stop: 05/20/18 18:31 Last Admin: 05/20/18 19:27 Dose: 1 each Pantoprazole Sodium (Protonix Iv) 40 mg IVPUSH DAILY COUNT INCLUDES THE [facility] Last Admin: 05/21/18 08:45 Dose: Not Given Pneumococcal Polyvalent Vaccine (Pneumovax 23) 0.5 ml IM .ONCE ONE Stop: 05/21/18 07:16 Last Admin: 05/21/18 08:39 Dose: 0.5 ml Quetiapine Fumarate (Seroquel) 50 mg PO BEDTIME COUNT INCLUDES THE [facility] Last Admin: 05/20/18 20:05 Dose: 50 mg - Exam Quality Assessment: DVT Prophylaxis. No: Supplemental Oxygen General: Alert, Oriented, Cooperative, No Acute Distress HEENT: Pupils Equal, Pupils Reactive, EOMI, Mucous Membr. Moist/[place] Neck: Supple Lungs: Clear to Auscultation, Normal Respiratory Effort Cardiovascular: Regular Rate, Regular Rhythm GI/Abdominal Exam: Normal Bowel Sounds, Soft, Non-Tender, No Organomegaly, No Distention, No Abnormal Bruit, No Mass, Pelvis Stable (Female) Exam: Deferred Back Exam: Normal Inspection, Full Range of Motion Extremities: Normal Inspection, Normal Range of Motion, Non-Tender, No Pedal Edema, Normal Capillary Refill Peripheral Pulses: 3+: Posterior Tibial (L), Posterior Tibial (R), Dorsalis Pedis (L), Dorsalis Pedis (R) Skin: Warm, Dry, Intact Neurological: No New Focal Deficit Psy/Mental Status: Alert, Anxious, Depressed - Problem List & Annotations (1) ETOH abuse SNOMED Code(s): 68574412 Code(s): F10.10 - ALCOHOL ABUSE, UNCOMPLICATED Status: Acute Priority: High Current Visit: Yes (2) Tobacco dependence SNOMED Code(s): 90599966 Code(s): F17.200 - NICOTINE DEPENDENCE, UNSPECIFIED, UNCOMPLICATED Status: Acute Priority: High Current Visit: Yes - Problem List Review Problem List Initiated/Reviewed/Updated: Yes - My Orders Last 24 Hours: My Active Orders 05/23/18 05:11 CBC WITH AUTO DIFF [HEME] AM COMPREHENSIVE METABOLIC PN,CMP [CHEM] AM MAGNESIUM [CHEM] AM 05/24/18 05:11 CBC WITH AUTO DIFF [HEME] AM COMPREHENSIVE METABOLIC PN,CMP [CHEM] AM MAGNESIUM [CHEM] AM 05/25/18 05:11 CBC WITH AUTO DIFF [HEME] AM COMPREHENSIVE METABOLIC PN,CMP [CHEM] AM MAGNESIUM [CHEM] AM - Plan Plan:: Assessment/Plan: Acute: Uncontrolled Hypothyroidism * 2/2 medical noncompliance * TSH 168.566--> 173.907 * T4 0.07 * Restart Levothyroxine Hx/o Poly-Substance Abuse * UDS: negative * Counseled on Substance Abuse * SA/Psych consult--> recommend outpt Tobacco Dependence * Smokes 1ppd x 30yrs * Nicotine patch daily * Counseled on Smoking Cessation Medical Noncompliance * States she hasn't taken any of her prescribed medications in at least 5 weeks * Restart home meds * Had discussion about the importance of taking her medications and the repercussions of not taking them; she states she understands and is willing to start them again Resolved: S/P ETOH Abuse/Withdrawal * Acute on Chronic * Drank "half a box of wine" today * KEYANNA is 0.07 * CIWA protocol: CIWA score is 6 * Ativan/Seroquel/Clonidine/Topamax * Hydralazine and IVP BB for HR/BP control * Ativan for Abortive Seizure and Withdrawal Symptoms * She wants to get better Chronic: PTSD Bipolar Depression/Anxiety Gastric Bypass 2008 Hypothyroid Plan: Admit to ICU MVI, Folic Acid and Thiamine CIWA protocol Ativan for Abortive Seizure and Withdrawal Symptoms PRN meds for Withdrawal Symptoms Seizure Precautions DVT and GI: SCDs, Protonix SW/CM D/C planning SA/Psych consult Full Code; No PCP just moved from [place], need to establish
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
[2018-05-22] MEDS: Prazosin 1 MG Cap PO SCH (20:34)
[2018-05-22] MEDS: QUEtiapine 25 MG Tab PO SCH (20:35)
[2018-05-23] MEDS: Levothyroxine 125 MCG Tab PO SCH (05:27)
[2018-05-23] MEDS: Furosemide 20 MG Tab PO SCH (08:15)
[2018-05-23] MEDS: Loratadine 10 MG Tab PO SCH (08:15)
[2018-05-23] MEDS: Pantoprazole 40 MG Tab.CR PO SCH (08:15)
[2018-05-23] MEDS: Venlafaxine 75 MG Cap.ER PO SCH (08:15)
[2018-05-23] MEDS: Topiramate 25 MG Tab PO SCH (08:15)
[2018-05-23] MEDS: amLODIPine 10 MG Tab PO SCH (08:16)
[2018-05-23] MEDS: Thiamine 100 MG Tab PO SCH (08:17)
[2018-05-23] MEDS: Remove Patch*NICOTINE TRDERM SCH (08:20)
[2018-05-23] MEDS: Nicotine 21 MG/24 Hr Patch TRDERM SCH (08:21)
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
== END 2018-05-23 10:30 | disposition home or self-care (01) | DRG 897 ==
LOC: JD.ED 15:11 → JD.ICU 16:22
PROVIDERS: ADMIT Internal Medicine; ATTEND Internal Medicine
DX: F10.239 Alcohol dependence with withdrawal, unspecified (principal); F11.20 Opioid dependence, uncomplicated; F10.229 Alcohol dependence with intoxication, unspecified; E03.9 Hypothyroidism, unspecified; F43.10 Post-traumatic stress disorder, unspecified; F31.9 Bipolar disorder, unspecified; F41.9 Anxiety disorder, unspecified; F17.210 Nicotine dependence, cigarettes, uncomplicated; F60.3 Borderline personality disorder; Z88.6 Allergy status to analgesic agent; Z98.84 Bariatric surgery status; Z88.8 Allergy status to other drugs, medicaments and biological substances; Z79.899 Other long term (current) drug therapy; Z91.14 Patient's other noncompliance with medication regimen
CPT/HCPCS: 36415; 73560-26-LT; 73560-LT; 80053; 80306; 83036; 83735; 84439; 84443; 85007; 85025; 85027; 90732; A9270-GY; C9113; G0480; J0360